=== PATIENT | female | born 1940 | race Caucasian/White ===

== ENCOUNTER 2021-07-14 15:16 | Outpatient (CLI) | payer MEDICARE, BC ==
[2021-07-14 16:09] LABS: Hemoglobin 11.1 g/dL (12.0-15.5); Mean Corpuscular HGB CONC 32.3 g/dL (32.0-36.0); Mean Corpuscular Hemoglobin 28.6 pg (27.0-33.0); Mean Corpuscular Volume 88.7 fl (81.6-98.3); Mean Platelet Volume 9.7 fl (7.4-10.4); Platelet Count 347 10x3/uL (150-450); RBC Distribution Width 12.3 % (11.5-14.5); Red Blood Cell (RBC) Count 3.88 10x6/uL (3.90-5.03); White Blood Cell (WBC) Count 12.4 10x3/uL (3.5-10.5)
[2021-07-14 16:18] LABS: Anion Gap 16 mmol/L (10-20); BUN (Urea Nitrogen) 21 mg/dL (9.8-20.1); Calc. Creatinine Clearance 0 mL/min (70-130); Calcium 9.4 mg/dL (7.8-10.44); Carbon Dioxide 24 mmol/L (23-31); Chloride 105 mmol/L (98-107); Glucose 113 mg/dL (83-110); Potassium 3.9 mmol/L (3.5-5.1); Sodium 141 mmol/L (136-145)
[2021-07-14 16:19] LABS: PTT 28.5 sec (22.0-33.0); Prothrombin Time 10.9 sec (9.5-12.1)
[2021-07-15 08:17] LABS: SARS-CoV-2 PCR by NAA Not Detected (NotDetected)
== END 2021-07-14 15:17 | disposition home or self-care (01) ==
LOC: CSHLAB 15:16
PROVIDERS: ATTEND Internal Medicine Cardiovascular Disease
DX: Z01.818 Encounter for other preprocedural examination (principal); Z20.822 Contact with and (suspected) exposure to COVID-19
CPT/HCPCS: 71046; 80048; 85027; 85610; 85730; 93005; 93010; U0003; U0005

== ENCOUNTER 2021-07-17 08:30 | Inpatient (IN) | payer MEDICARE, BC ==
[2021-07-17] MEDS ORDERED: methylPREDNISolone Sod Succ/PF 125 MG/2 ML VIAL ONE (09:01)
[2021-07-17] MEDS ORDERED: diphenhydrAMINE 50 MG/ML VIAL ONE (09:01)
[2021-07-17 09:02] VITALS: TEMP 99.4
[2021-07-17] MEDS ORDERED: Aspirin Chewable 81 MG TAB ONE (09:02)
[2021-07-17] MEDS ORDERED: Famotidine/PF 20 mg/2ml Vial ONE (09:38)
[2021-07-17] MEDS ORDERED: Phenylephrine 40 MG/NS 250 ML 250 ML ONE (09:41)
[2021-07-17] MEDS ORDERED: PHENYLEPHRINE-NS 100 MCG/ML 10 ML SYRINGE ONE (09:42)
[2021-07-17] MEDS ORDERED: Atropine Sulfate 0.4 mg/1 ml Vial ONE (09:44)
[2021-07-17] MEDS ORDERED: Lidocaine 1% PF 5 ML VIAL ONE (09:44)
[2021-07-17] MEDS ORDERED: Heparin 10,000 UNITS/ 10 ML VIAL ONE (09:44)
[2021-07-17] MEDS ORDERED: Sodium Chloride 0.9% 1,000 ML ONE (09:44)
[2021-07-17] MEDS ORDERED: Fentanyl 100 MCG/2 ML VIAL ONE (10:36)
[2021-07-17] MEDS ORDERED: Midazolam HCl 2 mg/2 ml Vial ONE (10:37)
[2021-07-17] MEDS ORDERED: Clopidogrel Bisulfate 300 MG TAB ONE (11:15)
[2021-07-17] MEDS ORDERED: Ondansetron PF 4 MG/2 ML Vial ONE (11:55)
[2021-07-17 12:05] VITALS: BMI 31.1
[2021-07-17] MEDS ORDERED: Nitroglycerin 0.4 MG TAB (25 Tab Bottle) SL PRN (14:20)
[2021-07-17] MEDS ORDERED: Mag-Al 1200 mg/1200 mg/30 ML UDCUP PO PRN (14:22)
[2021-07-17] MEDS ORDERED: Ondansetron PF 4 MG/2 ML Vial IVP PRN (14:22)
[2021-07-17] MEDS ORDERED: diphenhydrAMINE 25 MG CAP PO PRN (14:24)
[2021-07-17] MEDS ORDERED: Benzonatate 100 MG CAP PO PRN (14:25)
[2021-07-17] MEDS ORDERED: Guaifenesin DM 100-10/5 ML UDCUP PO PRN (14:27)
[2021-07-17] MEDS ORDERED: cloNIDine 0.1 MG TAB PO PRN (14:28)
[2021-07-17] MEDS: Sodium Chloride 0.9% 1,000 ML IV SCH ×2 (14:58→18:01)
[2021-07-17] MEDS ORDERED: Atorvastatin Calcium 40 MG TAB PO SCH (21:00)
[2021-07-17] MEDS ORDERED: Atorvastatin Calcium 20 MG TAB PO SCH (21:00)
[2021-07-18 04:53] LABS: #Neutrophils 14.3 10x3/uL (1.5-8.4); %Basophils 0.1 % (0.0-2.0); %Lymphocytes 14.3 % (18.0-47.0); %Monocytes 5.8 % (0.0-10.0); %Neutrophils 79.3 % (40.0-75.0); Hemoglobin 9.3 g/dL (12.0-15.5); Mean Corpuscular HGB CONC 32.6 g/dL (32.0-36.0); Mean Corpuscular Hemoglobin 28.8 pg (27.0-33.0); Mean Corpuscular Volume 88.2 fl (81.6-98.3); Mean Platelet Volume 9.8 fl (7.4-10.4); Platelet Count 251 10x3/uL (150-450); RBC Distribution Width 12.6 % (11.5-14.5); Red Blood Cell (RBC) Count 3.23 10x6/uL (3.90-5.03)
[2021-07-18 05:13] LABS: ALT (SGPT) 11 U/L (8-55); AST (SGOT) 13 U/L (5-34); Albumin 3.4 g/dL (3.4-4.8); Alkaline Phosphatase 44 U/L (40-110); Anion Gap 13 mmol/L (10-20); BUN (Urea Nitrogen) 26 mg/dL (9.8-20.1); Bilirubin, Total 0.2 mg/dL (0.2-1.2); Calc. Creatinine Clearance 57 mL/min (70-130); Calcium 8.2 mg/dL (7.8-10.44); Carbon Dioxide 21 mmol/L (23-31); Chloride 115 mmol/L (98-107); Globulin 1.9 g/dL (2.4-3.5); Glucose 140 mg/dL (83-110); Potassium 4.2 mmol/L (3.5-5.1); Protein, Total 5.3 g/dL (5.8-8.1); Sodium 145 mmol/L (136-145)
[2021-07-18] MEDS: Sodium Chloride 0.9% 1,000 ML IV SCH ×2 (07:17)
[2021-07-18 08:45] VITALS: BP 135/59
[2021-07-18] MEDS ORDERED: Amlodipine 5 MG TAB PO SCH (09:00)
[2021-07-18] MEDS ORDERED: Aspirin Chewable 81 MG TAB PO SCH (09:00)
[2021-07-18] MEDS ORDERED: Clopidogrel Bisulfate 75 MG TAB PO SCH (09:00)
== END 2021-07-18 11:00 | disposition home or self-care (01) | DRG 36 ==
LOC: CSHSDC 08:30 → CSHIMCU 11:58
PROVIDERS: ADMIT Internal Medicine Cardiovascular Disease; ATTEND Internal Medicine Cardiovascular Disease
PROC: 037K34Z Dilation of Right Internal Carotid Artery with Drug-eluting Intraluminal Device, Percutaneous Approach (ICD-10-PCS; principal; 2021-07-17)
PROC: B3181ZZ Fluoroscopy of Bilateral Internal Carotid Arteries using Low Osmolar Contrast (ICD-10-PCS; 2021-07-17)
DX: I65.21 Occlusion and stenosis of right carotid artery (principal); I10 Essential (primary) hypertension; E78.5 Hyperlipidemia, unspecified; E11.9 Type 2 diabetes mellitus without complications; I95.9 Hypotension, unspecified; I49.3 Ventricular premature depolarization
CPT/HCPCS: 36223; 36227; 36415; 37215; 80053; 85025; 85347; 93005; 93010; 99152; 99153; C1760; C1876; C1884; J0461; J1200; J1644; J2250; J2405; J2930; J3010; J7050; S0028